=== PATIENT | male | born 1990 | race Caucasian/White ===

== ENCOUNTER 2019-08-16 14:27 | Emergency (ER) | payer MEDICAID ==
[~2019-08-16] VITALS: Ht 170.2 cm; Wt 100.0 kg
[2019-08-16] MEDS ORDERED: CLONAZEPAM 0.5MG TABLET PO ONE (15:30)
[2019-08-16 16:24] VITALS: BP 118/90
== END 2019-08-16 16:26 | disposition home or self-care (01) ==
LOC: ER 14:38
DX: R06.02 Shortness of breath (principal); J45.909 Unspecified asthma, uncomplicated; F12.10 Cannabis abuse, uncomplicated
CPT/HCPCS: 71045; 93005; 99283